=== PATIENT | female | born 1970 | race Caucasian/White ===

== ENCOUNTER 2016-09-21 23:58 | Observation (INO) | payer OTHER ==
[~2016-09-21] VITALS: Ht 157.5 cm; Wt 55.8 kg
[~2016-09-21 23:58] MED LIST: DIGO0.2518 PO; SERT-234 PO; TIOTCAP INH
[2016-09-22] MEDS ORDERED: SODIUM CHLORIDE 0.9% 1000ML 1,000 ML IV STA (00:11)
[2016-09-22] MEDS ORDERED: ASPIRIN 324 MG CHEW PO STA (00:11)
[2016-09-22] MEDS: NITROGLYCERIN 0.4 MG SL PER TAB CHARGE SL PRN ×2 (00:17→00:30)
[2016-09-22 00:20] LABS: BASO % 0.3 %; BASO ABS # 0.03 K/uL (0-0.2); COMPLETE YES; EOS % 1.3 %; HEMATOCRIT 45.1 % (37-47); IG% 0.2 %; LYMPH % 39.7 %; MEAN CELL VOLUME 91.1 fL (80-100); MEAN CORPUSCULAR HEMOGLOBIN 30.3 pg (25-34); MEAN CORPUSCULAR HGB CONC 33.3 g/dl (32-36); MEAN PLATELET VOLUME 8.7 fL (7.4-10.4); MONO % 5.2 %; NEUT % 53.3 %; PLATELET COUNT 355 K/uL (130-400); RED BLOOD COUNT 4.95 M/uL (4.2-5.4); WHITE BLOOD COUNT 10.34 K/uL (4.8-10.8)
--- NOTE | 2016-09-22 00:35 | EMERGENCY ROOM VISIT NOTE ---
History Report prepared by Sukhwinder: Hung Benitez Under the Supervision of: Dr. Roge Herbert M.D. First contact with patient: 00:06 Chief Complaint: RAPID HEART RATE Stated Complaint: CHEST BURNING,RAPID HEARTRATE History of Present Illness The patient is a 46 year old female who presents to the Emergency Room with complaints of constant chest pain starting around 2300 tonight. The patient states that she was laying in her bed, and she started having some burning chest pain that is in the center that radiates into her left chest. She states that she has a history of an irregular heart rate and high cholesterol. She denies any history of heart attacks, though she states that her father had one when he was young. She denies any rashes, recent falls, recent alcohol use, or recent passing out. She states that she is additionally having intermittent back pain. The patient has a history of smoking, and she has nodules on her lungs, and she used to have a chest tube. The patient denies any leg swelling, recent travel, steroid use, and she denies taking any aspirin. Source of History: patient Onset: 2300 Position: chest Quality: burning Timing: constant Associated Symptoms: + back pain, No rash Review of Systems See HPI for pertinent positives & negatives. A total of 10 systems reviewed and were otherwise negative. Past Medical & Surgical Medical Problems: (1) Chest pain, rule out acute myocardial infarction (2) Depression (3) Emphysema (4) Pneumonia Family History FH: cancer FH: heart disease FH: lung disease Social History Smoking Status: Current Every Day Smoker Drug Use: none Housing Status: lives with significant other Occupation Status: unemployed Current/Historical Medications Scheduled Digoxin (Digoxin), 0.25 MG PO DAILYBB Sertraline (Zoloft), 100 MG PO DAILY Allergies Coded Allergies: Metaproterenol (Unverified Allergy, Intermediate, NERVOUS, 09/22/16) Physical Exam Vital Signs Date Time Temp Pulse Resp B/P (MAP) Pulse Ox O2 Delivery O2 Flow Rate FiO2 09/22/16 00:35 101 20 123/71 96 Room Air 09/22/16 00:31 107 20 132/77 95 09/22/16 00:25 102 20 132/87 95 09/22/16 00:11 36.8 92 24 142/81 98 Room Air 09/22/16 00:10 Room Air 09/22/16 00:08 107 Physical Exam GENERAL: Patient is severely anxious appearing and in moderate distress. HEENT: No acute trauma, normocephalic atraumatic, mucous membranes moist, no nasal congestion, no scleral icterus. NECK: No stridor, no adenopathy, no meningismus, trachea is midline. LUNGS: No dyspnea. Clear to auscultation and equal bilaterally. No wheeze, no rhonchi. HEART: Mildly tachycardic rate and regular rhythm. No murmurs, rubs, gallops appreciated. ABDOMEN: Soft, nontender, bowel sounds positive, no masses appreciated, no peritonitis. BACK: No midline tenderness, no CVA tenderness EXTREMITIES: Normal motion all extremities, no cyanosis, no edema. NEUROLOGIC: Alert and oriented, no acute motor or sensory deficits, no focal weakness, cranial nerves grossly intact. SKIN: No rash, no jaundice, no diaphoresis. Medical Decision & Procedures ER Provider Diagnostic Interpretation: X ray results are stated below per my interpretation: Chest: 1 view: No infiltrate, no effusion, normal cardiac border. Laboratory Results 09/22/16 00:10 Red Blood Count 4.95, Mean Corpuscular Volume 91.1, Mean Corpuscular Hemoglobin 30.3, Mean Corpuscular Hemoglobin Concent 33.3, Mean Platelet Volume 8.7, Neutrophils (%) (Auto) 53.3, Lymphocytes (%) (Auto) 39.7, Monocytes (%) (Auto) 5.2, Eosinophils (%) (Auto) 1.3, Basophils (%) (Auto) 0.3, Neutrophils # (Auto) 5.52, Lymphocytes # (Auto) 4.10, Monocytes # (Auto) 0.54, Eosinophils # (Auto) 0.13, Basophils # (Auto) 0.03 09/22/16 00:10 Test 09/22/16 00:10 White Blood Count 10.34 K/uL (4.8-10.8) Red Blood Count 4.95 M/uL (4.2-5.4) Hemoglobin 15.0 g/dL (12.0-16.0) Hematocrit 45.1 % (37-47) Mean Corpuscular Volume 91.1 fL (80-100) Mean Corpuscular Hemoglobin 30.3 pg (25-34) Mean Corpuscular Hemoglobin Concent 33.3 g/dl (32-36) Platelet Count 355 K/uL (130-400) Mean Platelet Volume 8.7 fL (7.4-10.4) Neutrophils (%) (Auto) 53.3 % Lymphocytes (%) (Auto) 39.7 % Monocytes (%) (Auto) 5.2 % Eosinophils (%) (Auto) 1.3 % Basophils (%) (Auto) 0.3 % Neutrophils # (Auto) 5.52 K/uL (1.4-6.5) Lymphocytes # (Auto) 4.10 K/uL (1.2-3.4) Monocytes # (Auto) 0.54 K/uL (0.11-0.59) Eosinophils # (Auto) 0.13 K/uL (0-0.5) Basophils # (Auto) 0.03 K/uL (0-0.2) RDW Standard Deviation 43.9 fL (36.4-46.3) RDW Coefficient of Variation 13.2 % (11.5-14.5) Immature Granulocyte % (Auto) 0.2 % Immature Granulocyte # (Auto) 0.02 K/uL (0.00-0.02) Anion Gap 9.0 mmol/L (3-11) Est Creatinine Clear Calc Drug Dose 55.0 ml/min Estimated GFR () 77.7 Estimated GFR (Non- 67.0 BUN/Creatinine Ratio 10.1 (10-20) Calcium Level 9.7 mg/dl (8.5-10.1) Total Creatine Kinase 88 U/L (26-192) Creatine Kinase MB 1.1 ng/ml (0.5-3.6) Creatine Kinase MB Ratio 1.3 (0-3.0) Troponin I < 0.015 ng/ml (0-0.045) Laboratory results as reviewed by me. Medications Administered Medications (Trade) Dose Ordered Sig/Jasson Route Start Time Stop Time Status Last Admin Dose Admin Aspirin (Aspirin Chew) 324 mg NOW STAT PO 09/22/16 00:11 09/22/16 00:12 DC 09/22/16 00:15 324 MG Sodium Chloride 1,000 ml @ 999 mls/hr Q1H1M STAT IV 09/22/16 00:11 09/22/16 01:11 DC 09/22/16 00:16 999 MLS/HR Nitroglycerin (Nitrostat Tab) 0.4 mg Q5M PRN SL 09/22/16 00:15 09/22/16 01:40 DC 09/22/16 00:30 0.4 MG ECG Indication: chest pain Rate (beats per minute): 104 Rhythm: sinus tachycardia Findings: ST depression (Lateral and inferior) Comparison ECG Date: 07/28/2013 Change: ST Depressions are new REPEAT EKG: Normal Sinus Rhythm at 98 beats per minute. Heart Rates has improved. ST depressions have improved. No ectopy. ED Course 0006: The patient was evaluated in room B7. A complete history and physical exam was performed. 0011: Sodium Chloride 1000 ml @ 999 mls/hr IV, Aspirin 324mg PO 0015: Nitrostat Tab 0.4mg SL 0027: I reassessed the patient, and her pain is improving. I talked to nursing to repeat the EKG and give Nitro in 10-15 minutes. 0054: I reevaluated the patient, and she has no further chest pain. 0103: I discussed the patient's case with Dr. De La Garza, Hospitalist. He is going to evaluate the patient for further treatment. Medical Decision Differential: Cardiac Ischemia (STEMI, NSTEMI, Unstable Angina, etc), Aortic Dissection, Arrhythmia, Pulmonary Embolism, Pneumonia, Pneumothorax, MSK, Infectious, Pericarditis/Myocarditis, Esophageal Rupture, Gastrointestinal, amongst other pathologies entertained. 46 yr old female with multiple cardiac risk factors arrives with substernal cp radiating to bilateral upper chest. EKG with lateral depressions. EKG improved with resolution of pain following SLNTG. ASA given. Initial cardiac enzymes negative. Patient stable and feeling much better. No shob, nor PE risks nor hypoxia thus hold on CT PE and I do not feel dimer indicated at this time. Medication Reconcilliation Current Medication List: was personally reviewed by me Blood Pressure Screening Patient's blood pressure: Elevated blood pressure The blood pressure will be monitored by the hospitalist Consults Time Called: 100 Consulting Physician: Dr. De La Garza, Hospitalist Returned Call: 102 I discussed the patient's case with Dr. De La Garza, Hospitalist. He is going to evaluate the patient for further treatment. Impression Primary Impression: Substernal chest pain Additional Impression: Abnormal EKG Scribe Attestation The scribe's documentation has been prepared under my direction and personally reviewed by me in its entirety. I confirm that the note above accurately reflects all work, treatment, procedures, and medical decision making performed by me. Departure Information Dispostion Being Evaluated By Hospitalist Referrals Eli Brown (PCP) Problem Qualifiers
[2016-09-22 00:37] LABS: BLOOD UREA NITROGEN 10 mg/dl (7-18); BUN/CREATININE RATIO 10.1 (10-20); CALCIUM 9.7 mg/dl (8.5-10.1); CARBON DIOXIDE 27 mmol/L (21-32); CHLORIDE 106 mmol/L (98-107); GLUCOSE 170 mg/dl (70-99); POTASSIUM 3.3 mmol/L (3.5-5.1); SODIUM 142 mmol/L (136-145)
[2016-09-22 00:42] LABS: CKMB/CK RATIO 1.3 (0-3.0)
[2016-09-22] MEDS ORDERED: LNX25 PO (00:44)
[2016-09-22] MEDS ORDERED: ENOXAPARIN 40 MG/0.4 ML SYR SC SCH (01:00)
[2016-09-22] MEDS ORDERED: MoRPHine SULFATE 2 MG/ML CARP IV PRN (01:00)
[2016-09-22] MEDS ORDERED: ACETAMINOPHEN 325 MG TAB PO PRN (01:00)
[2016-09-22] MEDS ORDERED: ONDANSETRON INJ 2 MG/ML 2 ML VIAL IV PRN (01:00)
[2016-09-22] MEDS ORDERED: NITROGLYCERIN 0.4 MG SL PER TAB CHARGE SL PRN (01:00)
--- NOTE | 2016-09-22 01:13 | History and Physical ---
History & Physical Date & Time of Service: Sep 22, 2016 at 01:13 Chief Complaint: Chest Burning,Rapid Heartrate Primary Care Physician: Eli Brown History of Present Illness Source: patient Mrs Yun is a 46 year old female smoker with hyperlipidemia and who presents to the ER with chest pain. Site: Substernal Onset: 11pm, came on while lying in bed Character burning sensation, there all the time Radiation: to her back Associated: nausea after chest pain, feeling short of breath, shaking. Denies any sweating Timing: Helped with nitro Exacerbating: not position or exertion Severity: initially 6/10, 10/10 at worse in the ER She denies any history of heartburn or similar pains in the past. She takes digoxin for what she describes as inappropriate sinus tachycardia with " multiple skipped beats". In the ER she was given ASA 324mg and nitro s/l tab which decreased her pain. The second nitroglycerin s/l tab took away the rest of her pain. Past Medical/Surgical History Medical Problems: Bullous emphysema Depression Family History FH: cancer FH: heart disease FH: lung disease Social History Smoking Status: Current Every Day Smoker (0.75 pack/day, 20+ years) Smokeless Tobacco Use: No Alcohol Use: none Drug Use: none Marital Status: Housing status: lives with family Occupational Status: unemployed Multi-Drug Resistant Organisms History of MDRO: No Allergies Coded Allergies: Metaproterenol (Unverified Allergy, Intermediate, NERVOUS, 09/22/16) Home Medications Scheduled Digoxin (Digoxin), 0.25 MG PO DAILYBB Sertraline (Zoloft), 100 MG PO DAILY Review of Systems Constitutional: + fatigue (felt unwell all day long, run down.), No fever, No chills Eyes: No worsening of vision ENT: No hearing loss Respiratory: + cough, + shortness of breath, No sputum Cardiovascular: + chest pain, + palpitations (chronically), No orthopnea, No PND, No edema, No claudication Abdomen: + nausea, No pain, No vomiting, No diarrhea, No constipation, No GI bleeding Musculoskeletal: No joint pain, No muscle pain Genitourinary - Female: No dysuria, No urinary urgency, No urinary incontinence , No urinary retention, No hematuria Psychiatric: No depression symptoms (depression currently is stable with zoloft ) Endocrine: No excessive thirst, No excessive urination Hematologic / Lymphatic: No abnormal bleeding/bruising Integumentary: No rash, No itch Physical Exam Vital Signs Date Time Temp Pulse Resp B/P (MAP) Pulse Ox O2 Delivery O2 Flow Rate FiO2 09/22/16 00:35 101 20 123/71 96 Room Air 09/22/16 00:31 107 20 132/77 95 09/22/16 00:25 102 20 132/87 95 09/22/16 00:11 36.8 92 24 142/81 98 Room Air 09/22/16 00:10 Room Air 09/22/16 00:08 107 General Appearance: WD/WN, no apparent distress Eyes: PERRL, EOMI, + abnormal sclerae exam (b/l conjunctival injection without discharge (patient reports due to lack of sleep)) ENT: normal ENT inspection Neck: supple, no JVD Respiratory/Chest: chest non-tender, lungs clear, normal breath sounds, no respiratory distress, no accessory muscle use Cardiovascular: no edema, no murmur, normal peripheral pulses, + tachycardia Abdomen/GI: normal bowel sounds, non tender, soft Back: normal inspection Extremities/Musculoskelatal: no calf tenderness, normal capillary refill, no pedal edema Neurologic/Psych: solutions sales consultant II-XII nml as tested (no facial droop), no motor/sensory deficits (grossly), alert, oriented x 3 Skin: normal color, warm/dry, no rash Lymphatic: no adenopathy Diagnostics Laboratory Results Results Past 24 Hours Test 09/22/16 00:10 Range/Units White Blood Count 10.34 4.8-10.8 K/uL Red Blood Count 4.95 4.2-5.4 M/uL Hemoglobin 15.0 12.0-16.0 g/dL Hematocrit 45.1 37-47 % Mean Corpuscular Volume 91.1 80-100 fL Mean Corpuscular Hemoglobin 30.3 25-34 pg Mean Corpuscular Hemoglobin Concent 33.3 32-36 g/dl Platelet Count 355 130-400 K/uL Mean Platelet Volume 8.7 7.4-10.4 fL Neutrophils (%) (Auto) 53.3 % Lymphocytes (%) (Auto) 39.7 % Monocytes (%) (Auto) 5.2 % Eosinophils (%) (Auto) 1.3 % Basophils (%) (Auto) 0.3 % Neutrophils # (Auto) 5.52 1.4-6.5 K/uL Lymphocytes # (Auto) 4.10 1.2-3.4 K/uL Monocytes # (Auto) 0.54 0.11-0.59 K/uL Eosinophils # (Auto) 0.13 0-0.5 K/uL Basophils # (Auto) 0.03 0-0.2 K/uL RDW Standard Deviation 43.9 36.4-46.3 fL RDW Coefficient of Variation 13.2 11.5-14.5 % Immature Granulocyte % (Auto) 0.2 % Immature Granulocyte # (Auto) 0.02 0.00-0.02 K/uL Sodium Level 142 136-145 mmol/L Potassium Level 3.3 3.5-5.1 mmol/L Chloride Level 106 98-107 mmol/L Carbon Dioxide Level 27 21-32 mmol/L Anion Gap 9.0 3-11 mmol/L Blood Urea Nitrogen 10 7-18 mg/dl Creatinine 1.00 0.60-1.20 mg/dl Est Creatinine Clear Calc Drug Dose 55.0 ml/min Estimated GFR () 77.7 Estimated GFR (Non- 67.0 BUN/Creatinine Ratio 10.1 10-20 Random Glucose 170 70-99 mg/dl Calcium Level 9.7 8.5-10.1 mg/dl Total Creatine Kinase 88 26-192 U/L Creatine Kinase MB 1.1 0.5-3.6 ng/ml Creatine Kinase MB Ratio 1.3 0-3.0 Troponin I < 0.015 0-0.045 ng/ml CXR normal EKG 104 bpm Sinus tachycardia. Wandering baseline therefore difficult to interpret but possible ST and T wave changes in lateral leads which does not appear on the subsequent EKG (although the second EKG was reportedly without chest pain). Impression Assessment and Plan 46 year old female smoker with hyperlipidemia presents with chest pain Chest pain rule out MT - relief with nitro and no current shortness of breath makes PE unlikely (current HR is her baseline). Suspect most likely diagnosis of esophageal spasm/GERD however she has significant cardiac risk factors. No mediastinal enlargement on CXR. - serial troponin (12 hours will be at 11am) - NPO except meds in case her troponin is positive - nitro for further chest pain - consider stress echo if troponin negative Elevated glucose - within normal limits for random sample. Recheck in morning with HbA1C Depression - continue zoloft VTE Prophylaxis - deferred chemical given young age and likely short length of stay. Certainly if this turns out to be cardiac then we will start heparin. - TEDs + SCDs Code - Full as discussed with the patient and family Disposition - observation status in telemetry for chest pain rule out MT Level of Care Telemetry Advanced Directives Existing Advance Directive: No Existing Living Will: No Existing Power of District Associate Judge: No Resuscitation Status FULL RESUSCITATION VTE Prophylaxis VTE Risk Assessment Done? Y/N: Yes Risk Level: Moderate Given or contraindicated: Enoxaparin (Lovenox)SQ Additional Copies To Eli Brown Resident Tracking Resident Involvement: Resident Care Provided Care Provided: Adult ED
[2016-09-22] MEDS ORDERED: IV FLUIDS COMPLETED PRN (01:15)
[2016-09-22] MEDS ORDERED: SODIUM CHLORIDE 0.9% 1000ML 1,000 ML IV SCH (02:00)
[2016-09-22 02:31] VITALS: BP 119/68; PULSE 94; TEMP 36.8; O2SAT 97
[2016-09-22 02:35] VITALS: BP 119/68; PULSE 94; TEMP 36.8; O2SAT 97; Ht 157.5 cm; Wt 55.8 kg
--- NOTE | 2016-09-22 03:25 | HISTORY & PHYSICAL EXAMINATION ---
DATE OF ADMISSION: 09/22/2016 ADDENDUM REASON FOR ADMISSION: Chest pain. HISTORY OF PRESENT ILLNESS: This is a 46-year-old female with a history of sinus tachycardia and tobacco abuse. She presented with chest pain, which was relieved by NTG, accompanied by shortness of breath and she did have some lateral ST changes prior to being treated with NTG, although they may have been rate related. The patient was seen by the resident physician, Dr. Mario Owen. I had seen the patient and examined her myself independently. I have reviewed the orders and H&P as per Dr. Owen. We will make the following amendment. PHYSICAL EXAMINATION: GENERAL: The patient is awake, alert, and oriented x3. HEART: S1 and S2, regular. No murmurs. LUNGS: Clear to auscultation bilaterally. ABDOMEN: Nontender and nondistended. Bowel sounds present. EXTREMITIES: Show no clubbing, cyanosis or edema. Review of her EKG did show initial lateral ST depressions, which have abated along with her chest pain since administration of NTG. Heart rate persisted about 100. This was apparently standard for her. We plan to monitor overnight, obtain serial enzymes and may have cardiology review her EKG prior to discharge. She did have a stress test several years ago; however, we should schedule an additional. The patient should be counseled on smoking cessation prior to her departure.
[2016-09-22 03:31] VITALS: BP 102/61; PULSE 94; TEMP 36.8; O2SAT 97
[2016-09-22] MEDS ORDERED: POTASSIUM CHLORIDE INJ 40 MEQ in SODIUM CHLORIDE 0.9% 1000ML 1,000 ML IV SCH (04:30)
[2016-09-22] MEDS ORDERED: DIGOXIN 0.25 MG TAB PO SCH ×2 (06:00→16:00)
--- NOTE | 2016-09-22 06:28 | DIAGNOSTIC IMAGING REPORT ---
CHEST ONE VIEW PORTABLE CLINICAL HISTORY: Chest Pain dyspnea COMPARISON STUDY: By 19/11/2013 FINDINGS: The bones soft tissues and hemidiaphragms are normal. The cardiomediastinal silhouette is normal. The lungs are clear. The pulmonary vasculature is normal. IMPRESSION: Negative chest. The above report was generated using voice recognition software. It may contain grammatical, syntax or spelling errors. Electronically signed by: Britton Givens M.D. 09/22/2016 6:26 AM Dictated Date/Time: 09/22/2016 6:26 AM
[2016-09-22] MEDS ORDERED: NURSING VERBAL MED ORDER ONE ×2 (06:30→08:45)
[2016-09-22 07:15] VITALS: BP 110/66; PULSE 103; TEMP 37.2; O2SAT 95
[2016-09-22 07:15] LABS: ESTIMATED AVERAGE GLUCOSE 114 mg/dl; HA1C FLAG Normal (Normal)
[2016-09-22 08:02] VITALS: BP 127/73; PULSE 79; TEMP 36.6; O2SAT 97
[2016-09-22 09:00] LABS: BUN/CREATININE RATIO 13.8 (10-20); CALCIUM 8.7 mg/dl (8.5-10.1); CREATININE 0.72 mg/dl (0.60-1.20); POTASSIUM 4.2 mmol/L (3.5-5.1)
[2016-09-22] MEDS ORDERED: SERTRALINE HCL 100 MG TAB PO SCH ×2 (09:00→21:00)
[2016-09-22] MEDS ORDERED: ASPIRIN 81 MG ECTAB PO SCH (09:00)
--- NOTE | 2016-09-22 13:18 | Discharge Instructions ---
Discharge Instructions Date of Service Sep 22, 2016. Admission Reason for Admission: Chest Pain,Rule Out Acute Myocardial Infarction Discharge Discharge Diagnosis / Problem: Chest Pain Discharge Goals Goal(s): Decrease discomfort Activity Recommendations Activity Limitations: resume your previous activity . Instructions / Follow-Up Instructions / Follow-Up You came to [facility] with burning chest pain, nausea, feeling short of breath and generally unwell. We checked your troponin level, which measures damage to your heart, and that test was negative. You also passed your stress ECHO, which checks if there are areas in your heart that are not receiving enough blood. Based on these results, it is unlikely that your chest pain was caused by a problem with your heart. It was most likely an episode of indigestion. However, if you do ever experience severe chest pain or shortness of breath, come back to the hospital. You can continue to take your home medications as prescribed. In the hospital, we discussed the fact that your sugar levels are on the higher side, and could progress to diabetes if not managed by dietary changes. We also discussed your cholesterol levels, and the fact that your triglyceride levels are high and that your good cholesterol levels are low. We advise you to follow up with your primary care provider in 2-3 months regarding checking your cholesterol and sugar levels again. Another lifestyle modification to consider is smoking cessation, as that increases your chance at having heart disease. Please do consider these lifestyle changes and follow up with your primary care physician if you have any more questions on how to go about addressing these issues. Current Hospital Diet Patient's current hospital diet: Regular Diet Discharge Diet Recommended Diet: Regular Diet Pending Studies Studies pending at discharge: no Laboratory Results Hemoglobin A1c Test 09/22/16 06:15 Range/Units Estimated Average Glucose 114 mg/dl Hemoglobin A1c 5.6 4.5-5.6 % Lipid Panel Test 09/22/16 06:15 Range/Units Triglycerides Level 331 H 0-150 mg/dl Cholesterol Level 169 0-200 mg/dl HDL Cholesterol 28 mg/dl Cholesterol/HDL Ratio 6.0 LDL Cholesterol, Calculated 75 mg/dl Medical Emergencies . Who to Call and When: Medical Emergencies: If at any time you feel your situation is an emergency, please call 911 immediately. . Non-Emergent Contact Non-Emergency issues call your: Primary Care Provider . . "Provider Documentation" section prepared by Zenovia Tarmohamed. . VTE Core Measure Inpt VTE Proph given/why not?: Enoxaparin (Lovenox)SQ
[2016-09-22 14:15] VITALS: BP 127/73; PULSE 79; TEMP 36.6; O2SAT 97
--- NOTE | 2016-09-22 15:01 | DOBUTAMINE ECHO ---
*NOTICE TO RECEIVING [employer] This information is strictly Confidential and protected under [place] law. [place] law prohibits you from making any further disclosure of this information unless further disclosure is expressly permitted by the written consent of the person to whom it pertains or is authorized by law. A general authorization for the release of medical or other information is not sufficient for this purpose. Hospital accepts no responsibility if the information is made available to any other person, INCLUDING THE PATIENT. Interpretation Summary * Name: DAKOTA BARR Study Date: 09/22/2016 10:37 AM BP: 124/68 mmHg * Patient Location: C.2T\S\E215\S\1 HR: 69 * : 1970 (M/d/yyyy) Gender: Female Height: 62 in * Age: 46 yrs Ethnicity: [place] Weight: 123 lb * Ordering Physician: Asael Kemp * Referring Physician: Self, Referred * Performed By: Gemini Moran RCS * * Reason For Study: Chest Pain * BSA: 1.6 m2 * -- Conclusions -- * 1. Normal stress echocardiogram at 9.2 METS and a peak heart rate of 93% predicted maximum. * 2. No exercise-induced chest pain. * 3. False positive EKG response. * 4. Baseline echocardiogram notes normal left ventricular systolic function and no significant valvular pathology. Procedure Details * ECHOEX, CPT #65516 Left Ventricle * The left ventricle is normal in size. * There is normal left ventricular wall thickness. * Ejection Fraction = 60-65%. * Left ventricular systolic function is normal. * Resting wall motion: Normal. Stress wall motion: Appropriate increase in Left ventricular systolic function and decrease in cavity size. No stress induced segmental wall motion abnormalities. Right Ventricle * The right ventricle is grossly normal size. * A moderator band is seen in the right ventricle. * The right ventricular systolic function is normal as assessed by tricuspid annular plane systolic excursion (TAPSE) (normal >1.5 cm). Atria * The left atrial size is normal. * Right atrial size is normal. * No ASD detected; PFO is not assessed. Mitral Valve * The mitral valve anatomy is normal. * There is no mitral valve stenosis. * Significant mitral regurgitation is absent. Tricuspid Valve * The tricuspid valve anatomy is normal. * There is no tricuspid stenosis. * There is trace tricuspid regurgitation. Aortic Valve * The aortic valve is normal in structure and function. * No hemodynamically significant valvular aortic stenosis. * No aortic regurgitation is present. Pulmonic Valve * The pulmonary valve is inadequately visualized, but the Doppler data is adequate for interpretation. Great Vessels * The aortic root is normal size. * The pulmonary is not well visualized. Pericardium * There is no pericardial effusion. Stress Parameters * Normal baseline electrocardiogram. * Abnormal EKG response with 1-[address] depression in the inferolateral leads. These changes normalized after 4 minutes of recovery. * The stress portion of this study was personally supervised by the undersigned interpreting physician. * Rest heart rate was '69' BPM. * Rest blood pressure was '124/68' * Maximum heart rate achieved was 162 bpm. * Maximum heart rate was 93 % of maximum age-predicted heart rate. * Maximum blood pressure was '153/57' * Total exercise time was '7:27' * Maximum exercise MET level achieved was '9.2' METS * Maximum treadmill speed was '3.4' miles per hour. * Maximum treadmill elevation was '14'% grade. * Exercise was terminated due to 'fatigue' * Normal blood pressure response to exercise. MMode 2D Measurements and Calculations IVSd 0.90 cm IVSs 1.3 cm LVIDd 4.1 cm LVIDs 2.6 cm LVPWd 0.94 cm LVPWs 1.2 cm IVS/LVPW 0.96 FS 36.4 % EDV(Teich) 74.0 ml ESV(Teich) 24.7 ml EF(Teich) 66.7 % EDV(cubed) 68.7 ml ESV(cubed) 17.6 ml EF(cubed) 74.3 % % IVS thick 45.4 % % LVPW thick 27.4 % LV mass(C)d 117.6 grams LV mass(C)dI 75.6 grams/m\S\2 LV mass(C)s 97.0 grams LV mass(C)sI 62.4 grams/m\S\2 CO(Teich) 3.6 l/min CI(Teich) 2.3 l/min/m\S\2 SV(Teich) 49.4 ml SI(Teich) 31.7 ml/m\S\2 CO(cubed) 3.7 l/min CI(cubed) 2.4 l/min/m\S\2 SV(cubed) 51.1 ml SI(cubed) 32.8 ml/m\S\2 Ao root diam 2.8 cm Ao root area 6.3 cm\S\2 ACS 1.6 cm LA dimension 2.5 cm asc Aorta Diam 2.6 cm LA/Ao 0.87 LVAd ap4 25.9 cm\S\2 LVLd ap4 8.0 cm EDV(MOD-sp4) 68.0 ml LVAs ap4 13.0 cm\S\2 LVLs ap4 6.0 cm ESV(MOD-sp4) 23.0 ml EF(MOD-sp4) 66.2 % LVAd ap2 27.2 cm\S\2 LVLd ap2 8.4 cm EDV(MOD-sp2) 72.0 ml LVAs ap2 13.8 cm\S\2 LVLs ap2 6.5 cm ESV(MOD-sp2) 25.0 ml EF(MOD-sp2) 65.3 % CO(MOD-sp4) 3.3 l/min CI(MOD-sp4) 2.1 l/min/m\S\2 SV(MOD-sp4) 45.0 ml SI(MOD-sp4) 28.9 ml/m\S\2 CO(MOD-sp2) 3.4 l/min CI(MOD-sp2) 2.2 l/min/m\S\2 SV(MOD-sp2) 47.0 ml SI(MOD-sp2) 30.2 ml/m\S\2 Doppler Measurements and Calculations MV E max kaushik 120.6 cm/sec MV A max kaushik 93.2 cm/sec MV E/A 1.3 MV P1/2t max kaushik 126.0 cm/sec MV P1/2t 51.1 msec MVA(P1/2t) 4.3 cm\S\2 MV dec slope 721.6 cm/sec\S\2 MV dec time 0.18 sec Ao V2 max 112.1 cm/sec Ao max PG 5.0 mmHg Ao max PG (full) 1.0 mmHg LV V1 max PG 4.0 mmHg LV V1 max 99.8 cm/sec
--- NOTE | 2016-09-22 16:15 | Discharge Summary ---
Discharge Summary Date of Service Sep 22, 2016. (Surendra Tristan M.D.) Discharge Summary Admission Date: Sep 22, 2016 at 01:08 Discharge Date: Sep 22, 2016 Discharge Disposition: Home Principal Diagnosis: Non-cardiac chest pain (Surendra Tristan M.D.) Medication Reconciliation Continued Medications: Digoxin (Digoxin) 0.25 Mg Tab 0.25 MG PO DAILYBB Sertraline (Zoloft) 100 Mg Tab 100 MG PO DAILY, TAB Discharge Exam Ms. Yun is a 46 year old woman who has no new complaints today. She denies chest pain, SOB, n/v, or palpitations. She reports that she feels well today. She denies any past heart attacks or history of heart problems, aside from her sinus tachycardia with "skipped beats" for which she takes digoxin, and denies a past history of GERD. Review of Systems: Constitutional: No fever, No chills, No sweats, No weight loss Respiratory: No cough, No sputum, No wheezing, No shortness of breath Cardiovascular: No chest pain, No orthopnea, No PND, No edema Abdomen: No pain, No nausea, No vomiting, No diarrhea, No constipation Physical Exam: General Appearance: WD/WN, no apparent distress Respiratory/Chest: chest non-tender, lungs clear, normal breath sounds, no respiratory distress, no accessory muscle use Cardiovascular: regular rate, rhythm, no edema, no gallop, no JVD, no murmur , normal peripheral pulses Abdomen / GI: normal bowel sounds, non tender, soft, no organomegaly, no pulsatile mass Neurologic/Psychiatric: alert, normal mood/affect, oriented x 3 (Surendra Tristan M.D.) Hospital Course Ms. Yun presented to [facility] with a history of burning, substernal chest pain that was a/w SOB, and nausea. Her troponin levels, measured 8 hours apart, were negative, and her stress ECHO was negative as well. Based on these results, it is unlikely that her chest pain was of cardiac origin, and was likely an episode of indigestion. Ms. Yun was counselled on reducing her risks of a future cardiac event. Her triglycerides were 331, HDL 28, and HbA1c 5.6%. These results were discussed with her and she was counselled on lifestyle modifications to reduce her risk for developing diabetes and worsening hyperlipidemia. She currently smokes 3/4 of a pack a day, and smoking cessation was recommended, although she remains in the precontemplative stage. She was advised to follow up with her primary care physician regarding monitoring her lipid and sugar levels. Total Time Spent: Less than 30 minutes This includes examination of the patient, discharge planning, medication reconciliation, and communication with other providers. (Surendra Tristan M.D.) Resident Physician Supervision Note: I interviewed and examined the patient. Discussed with Dr. Tristan and agree with findings and plan as documented in the note. Any exceptions or clarifications are listed here: None Documented By: Asael Kemp feeling better chest pain gone enzymes negative stress echo negative. reviewed smoke cessation, dyslipidemia, A1c, need for lifestyle change and close PCP f/ u. stable for discharge. vitals noted nad breathing unlabored no pallor or icterus chest pain - likely was an episode of indigestion. stable for home. despite no evidence cardiac disease now, was lorraine shelby pt and on need for smoke cessation and lifestyle change to prevent progression in the future (Asael Kemp, D.O.) Discharge Instructions Please refer to the electronic Patient Visit Report (Discharge Instructions) for additional information. (Surendra Tristan M.D.) Additional Copies To Eli Brown Resident Tracking Resident Involvement: Resident Care Provided Care Provided: [facility] (Surendra Tristan M.D.)
== END 2016-09-22 15:31 | disposition home or self-care (01) ==
LOC: C.EDB 23:58 → C.2T 09-22 01:08 → ENRESERV 09-22 01:22
PROVIDERS: ADMIT Internal Medicine; ATTEND Family Medicine
DX: R07.2 Precordial pain (principal); R94.31 Abnormal electrocardiogram [ECG] [EKG]; E78.5 Hyperlipidemia, unspecified; F17.200 Nicotine dependence, unspecified, uncomplicated; J43.9 Emphysema, unspecified; F32.9 Major depressive disorder, single episode, unspecified; Z82.49 Family history of ischemic heart disease and other diseases of the circulatory system; Z83.6 Family history of other diseases of the respiratory system; Z87.01 Personal history of pneumonia (recurrent); Z79.899 Other long term (current) drug therapy